=== PATIENT | female | born 1950 | race Caucasian/White ===

== ENCOUNTER 2017-09-03 13:19 | Emergency (ER) | payer MEDICARE | END 2017-09-03 18:05 | disposition home or self-care (01) | LOC: D.ER 13:19 | DX: S43.004A Unspecified dislocation of right shoulder joint, initial encounter (principal); W17.89XA Other fall from one level to another, initial encounter; Y93.89 Activity, other specified; Y92.019 Unspecified place in single-family (private) house as the place of occurrence of the external cause; E11.9 Type 2 diabetes mellitus without complications; I10 Essential (primary) hypertension ==

== ENCOUNTER 2017-09-07 15:34 | Emergency (ER) | payer MEDICARE | END 2017-09-07 20:15 | disposition home or self-care (01) | LOC: D.ER 15:34 | DX: S43.004A Unspecified dislocation of right shoulder joint, initial encounter (principal); X58.XXXA Exposure to other specified factors, initial encounter; Y93.E1 Activity, personal bathing and showering; Y92.012 Bathroom of single-family (private) house as the place of occurrence of the external cause; E11.9 Type 2 diabetes mellitus without complications; I10 Essential (primary) hypertension ==

== ENCOUNTER → 2017-09-10 11:01 | Outpatient (CLI) | payer MEDICARE, BC | END | disposition home or self-care (01) | LOC: D.MRI 11:01 | DX: M25.511 Pain in right shoulder (principal); M25.311 Other instability, right shoulder ==

== ENCOUNTER 2017-10-13 07:05 | Inpatient (IN) | payer MEDICARE, BC ==
[2017-10-10 12:41] LABS: ANION GAP 11.5 mmol/L (8-16); CALCIUM 9.9 mg/dL (8.5-10.1); CARBON DIOXIDE 30.5 mmol/L (21.0-32.0)
[2017-10-10 12:57] LABS: HEMATOCRIT 47.6 % (36.0-48.0); MCH 29.7 pg (26.0-34.0); MCHC 33.6 g/dL (31.0-37.0); MCV 88.5 fL (80.0-100.0); RBC 5.38 10x6/uL (4.00-5.40); RDW 13.3 % (11.5-14.5)
[~2017-10-13] VITALS: Ht 162.6 cm; Wt 98.6 kg
--- NOTE | ~2017-10-13 | OP ---
PATIENT NAME: DAVID HAYES MEDICAL RECORD: [id number] :50 LOCATION:[id number] ADMISSION DATE: SURGEON: SHIN VAUGHAN MD DATE OF OPERATION: 10/13/2017 PREOPERATIVE DIAGNOSES: 1. Shoulder instability of the right shoulder. 2. Chronic rotator cuff tear of the right shoulder. 3. Impingement syndrome of the right shoulder. 4. Acromioclavicular arthritis of the right. POSTOPERATIVE DIAGNOSES: 1. Shoulder instability of the right shoulder. 2. Chronic rotator cuff tear of the right shoulder. 3. Impingement syndrome of the right shoulder. 4. Acromioclavicular arthritis of the right. 5. Biceps tendinitis. PROCEDURES: 1. Open rotator cuff repair with allograft augment. 2. Subacromial decompression. 3. Distal clavicle excision, 1 cm. 4. Anterior capsular shift with Bankart repair, all done open. 5. Biceps tenodesis. SURGEON: Shin Vaughan MD ANESTHESIA: General. INTRAOPERATIVE COMPLICATIONS: None. SUMMARY OF PATHOLOGIC FINDINGS: Consistent with the preoperative diagnosis, the patient had preoperative instability with capsular labral deficiency as well as a chronic rotator cuff tear; however, at the time of surgery what was thought to be a nonrepairable rotator cuff tear was [id number] repairable with an augment patch over the repair. The patient had a very long anterior bone spike, downward sloping acromion as well, grade IV chondromalacia of the acromioclavicular joint. OPERATIVE SUMMARY IN DETAIL: After obtaining the appropriate preoperative orthopedic surgery consent as well as anesthetic consultation, evaluation and clearance, the patient was brought to the operating room and placed on the operating table in supine position. After general laryngeal mask airway was administered, the patient was placed in a beach chair position. All pressure points were well padded to include bilateral lower heel padding. The patient was held firmly to the operating table using the vacuum pack suction system. Right upper extremity and shoulder were then prepped and draped in a routine sterile fashion. The arm was held in the Trimano arm holding device. A saber-type incision was made at the bisection of the acromion. This was taken down to the level of the deltoid. The deltoid was gently peeled medially and laterally. The AC joint was exposed as was the glenohumeral joint. The large impinging anterior bony process was noted. At this point, acromioplasty was performed followed by distal clavicle excision. Further inspection did show the patient to have a tear with an apex to the glenoid; however, it was reducible nicely. At this point, the biceps tendon was thoroughly examined and found to OPERATIVE REPORT [id number] DAVID HAYES severely tendonotic with substantial attritional tearing. It was tagged and released and then at the midway portion of the bicipital groove, it was tenodesed using an 8 mm tenodesis screw from [employer] with standard deployment techniques. Having completed this, the tails of these were then utilized to gently reach around and provide a capsular imbrication with the shoulder in neutral rotation. This was pulled up and laterally and anchored with a 4.75 SwiveLock from [employer]. Having completed this, evra-wa-tnns reapproximation of the rotator cuff was done with #2 Ethibond using a baseball stitch. Running this very well, we approximated the rotator cuff; however, laterally I was concerned that the coverage was not robust enough. At this point, the allograft dermal patch was then sewn over the repair using a #2 FiberWire as well as 0 FiberWire. Laterally, it was anchored with a combination of both an [employer] SpeedBridge as well as 2 suture tacks from [employer]. The entire construct was then extremely stable without anterior instability and good repair had been achieved. Copious irrigation was followed by reapproximation of the deltoid back to the anterior acromion in a transosseous fashion. This likewise was followed with superficial fascial closure of the deltoid. Having completed this, the skin was reapproximated with #1 Vicryl. This was followed by 2-0 Vicryl and final closure was achieved with ZipTight device. Sterile dressings were applied. The patient was awakened and taken to the recovery room in stable condition. All final needle and sponge counts were correct. TRANSINT:[id number] Voice Confirmation ID: [id number] DOCUMENT ID: [id number] CLEMENT SINGH, SHIN HOLMAN at 1856 CC: [id number] DICTATION DATE: 10/13/17 1256 FUNERAL ATTENDANT: 10/13/[address] [facility] [address] [place] [address]
[~2017-10-13 07:05] MED LIST: AMBIEN5 MG PO; ATIVAN1 MG PO; GLUCOPHAGE500 MG PO; HYDROCODONE-APA1 TAB PO; HYZAAR 100-25 T1 TAB PO; LOSARTAN/HCT TAB 100; PROTONIX40 MG PO; PROZAC20 MG PO; TENORMIN50 MG PO
[2017-10-13] MEDS ORDERED: ROPINIROLE HCL2 MG PO (07:43)
[2017-10-13 07:54] VITALS: BP 129/75; BMI 37.3
[2017-10-13 15:25] VITALS: BP 136/74; Ht 162.6 cm; Wt 98.6 kg
[2017-10-14] VITALS: BP 145/73
[2017-10-14 05:51] VITALS: BP 124/64
[2017-10-14 08:30] VITALS: BP 143/83
[2017-10-14] MEDS ORDERED: PERCOCET 10/3251 TA1 PO (08:34)
[2017-10-14 12:05] VITALS: BP 112/59
== END 2017-10-14 15:23 | disposition home health service (06) | DRG 502 ==
LOC: D.OPS 07:05 → D.PAN 09:00 → D.OPS 09:00 → D.MS 15:05 → D.OPS 15:06 → D.MS 15:07
PROVIDERS: Anesthesiology; Orthopaedic Surgery
PROC: 0LS40ZZ Reposition Left Upper Arm Tendon, Open Approach (ICD-10-PCS; 2017-10-13)
PROC: 0RNK0ZZ Release Left Shoulder Joint, Open Approach (ICD-10-PCS; 2017-10-13)
PROC: 0PB90ZZ Excision of Right Clavicle, Open Approach (ICD-10-PCS; 2017-10-13)
PROC: 0RQJ0ZZ Repair Right Shoulder Joint, Open Approach (ICD-10-PCS; 2017-10-13)
PROC: 0RNJ0ZZ Release Right Shoulder Joint, Open Approach (ICD-10-PCS; principal; 2017-10-13 09:00)
PROC: 0LU Tendons, Supplement (ICD-10-PCS; 2017-10-13 09:00)
DX: M75.101 Unspecified rotator cuff tear or rupture of right shoulder, not specified as traumatic (principal); M25.311 Other instability, right shoulder; M75.41 Impingement syndrome of right shoulder; M19.011 Primary osteoarthritis, right shoulder; M75.21 Bicipital tendinitis, right shoulder